=== PATIENT | female | born 2000 | race Caucasian/White ===

== ENCOUNTER → 2021-02-17 16:41 | Outpatient (CLI) | payer OTHER, SELFPAY ==
[2021-02-17 17:35] LABS: COVID19 -Nasal RAPID Negative (Negative)
== END ==
PROVIDERS: Visit Provider Physician Assistant
DX: J02.9 Acute pharyngitis, unspecified (principal); R05 Cough; Z20.822 Contact with and (suspected) exposure to COVID-19
CPT/HCPCS: 87635